=== PATIENT | male | born 1980 | race Caucasian/White ===

== ENCOUNTER 2023-06-30 05:49 | Day surgery (SDC) | payer OTHER ==
[2023-06-30] MEDS ORDERED: Lactated Ringers 1,000 ML IV SCH (06:30)
[2023-06-30] MEDS ORDERED: Xylocaine-Mpf 2% 5 Ml Vial ONE (08:01)
[2023-06-30] MEDS ORDERED: Versed 2 MG/2 ML Injection ONE (08:01)
[2023-06-30] MEDS ORDERED: DIPRIVAN 200 MG/20 ML IV ONE (08:01)
[2023-06-30 08:46] VITALS: RESP 18
[2023-06-30 09:01] VITALS: TEMP 97.5
[2023-06-30 09:02] VITALS: BP 122/73; PULSE 64; O2SAT 99
--- NOTE | 2023-06-30 09:46 | OP ---
SURGERY DATE/TIME: 06/30/2023 0805 PREOPERATIVE DIAGNOSIS: Dysphagia. POSTOPERATIVE DIAGNOSIS: Normal exam. PROCEDURE: Esophagogastroduodenoscopy. SURGEON: Dr. Ybarra. ANESTHESIA: Medications were given by the anesthesia department. BRIEF HISTORY: The patient is a 42-year-old white male patient with history of dysphagia issues. He reports that he had the modified barium swallow study done which he reports was essentially normal. The patient is here for further evaluation of dysphagia problem. The patient was described the risks of the procedure including the risk of perforation, phlebitis, untoward reaction to medication, bleeding, missed lesions and vocal cord injury. The patient verbalized his understanding and desired to have the procedure performed. DESCRIPTION OF PROCEDURE: The patient was given the medications by the anesthesia department. He had continuous pulse oximetry, ECG monitoring and intermittent blood pressure monitoring during the examination. He was placed in the left lateral decubitus position. A bite block was placed and the flexible Olympus gastroscope was used to intubate the oropharynx and larynx was obtained and was essentially normal. The scope was easily introduced in the esophagus which was normal throughout its length specifically no strictures were noted. The scope was passed along the esophagus into the stomach where normal gastric rugal folds were seen and these distended nicely with insufflation of air. The scope was passed along the greater curvature of the stomach to the antrum. Pylorus encountered and intubated. Duodenum inspected and found to be normal. The scope is withdrawn towards the stomach. Again retroflex view was obtained of the lesser curvature, fundus and cardia regions of the stomach. No significant hiatal hernia was noted. The scope was then removed from the patient. With careful inspection on removal, no mucosal lesions were encountered. The scope was removed from the patient who tolerated the procedure well and was sent back to outpatient recovery in good condition.
== END 2023-06-30 09:10 | disposition home or self-care (01) ==
LOC: SDC 05:49
PROVIDERS: ATTEND Family Medicine
DX: R13.10 Dysphagia, unspecified (principal)
CPT/HCPCS: J2250; J2704